=== PATIENT | male | born 1985 | race Caucasian/White ===

== ENCOUNTER 2018-04-02 13:11 | Emergency (ER) | payer OTHER ==
[2018-04-02] MEDS ORDERED: LORazepam 1 MG TAB PO ONE ×2 (14:22→15:51)
--- NOTE | 2018-04-02 15:44 | EDPHY ---
H & P Time Seen by Provider: 04/02/18 13:38 HPI/ROS: CHIEF COMPLAINT: Alcohol withdrawal HISTORY OF PRESENT ILLNESS: 32-year-old male presents emergency department with symptoms of alcohol withdrawal. The patient feels tremulous and feels nauseous. Vomited 1 time. He has abdominal cramping. He states that he is an alcoholic and typically drinks and upwards of 2 bottles of wine per day. Last drink last night. He has never been through treatment in the past. Denies diarrhea. Denies pain in his chest or difficulty breathing. REVIEW OF SYSTEMS: Constitutional: No fever, no chills. Eyes: No double or blurry vision. ENT: No sore throat. Respiratory: No cough, no shortness of breath. Cardiac: No chest pain. Gastrointestinal: Vomiting as above. No abdominal pain or diarrhea. Genitourinary: No dysuria. Musculoskeletal: No neck or back pain. Skin: No rashes. Neurological: No headache. Past Medical/Surgical History: Alcoholism Social History: . Just moved here from [place] 2 weeks ago Smoking Status: Former smoker Physical Exam: General Appearance: Alert, no distress. Mildly tremulous. Anxious. Spouse at bedside. Eyes: Pupils equal and round. Extraocular motions are all intact. ENT: Mouth: Mucous membranes moist. Respiratory: No wheezing, rhonchi, or rales, lungs are clear to auscultation. Cardiovascular: Regular rate and rhythm. Gastrointestinal: Abdomen is soft and nontender, no masses, no rebound or guarding, bowel sounds normal. Neurological: Alert and oriented x 3, cranial nerves II through XII grossly intact Skin: Warm and dry, no rashes. Musculoskeletal: Nontender to palpate along the cervical, thoracic or lumbar spine. Neck is supple. Extremities: Full range of motion and no peripheral edema. Psychiatric: Patient is oriented X 3, there is no agitation. Constitutional: Initial Vital Signs Temperature (C) 36.6 C 04/02/18 13:14 Heart Rate 96 04/02/18 13:14 Respiratory Rate 16 04/02/18 13:14 Blood Pressure 117/83 H 04/02/18 13:14 O2 Sat (%) 99 04/02/18 13:14 O2 Delivery Mode Room Air Allergies/Adverse Reactions: No Known Allergies Allergy (Unverified 04/02/18 13:13) Home Medications: Medication Instructions Recorded NK [No Known Home Meds] 04/02/18 Medical Decision Making ED Course/Re-evaluation: 32-year-old male who feels anxious after withdrawing from alcohol. He was given 0.5 mg of oral Ativan and is feeling much better. The patient is not homicidal or suicidal. His spouse's with him. He feels comfortable going home. He was given resources for alcoholism. He declined full mental health evaluation. Mental Health did bring him some resources. Differential Diagnosis: Including but not limited to alcohol withdrawal, alcohol withdrawal seizure, electrolyte abnormality, substance abuse - Data Points Medications Given: Discontinued Medications Lorazepam (Ativan) 0.5 mg PO EDNOW ONE Stop: 04/02/18 14:23 Last Admin: 04/02/18 14:39 Dose: 0.5 mg Lorazepam (Ativan) 0.5 mg PO EDNOW ONE Stop: 04/02/18 15:52 Last Admin: 04/02/18 15:59 Dose: 0.5 mg Departure - Departure Disposition: Home, Routine, Self-Care Clinical Impression: Alcoholism Alcohol withdrawal Qualifiers: Complication of substance-induced condition: uncomplicated Qualified Code(s): F10.230 - Alcohol dependence with withdrawal, uncomplicated Condition: Good Instructions: Alcohol Withdrawal (ED), Alcohol Dependence (ED) Additional Instructions: Ativan 0.5 mg as needed for symptoms of anxiety and acute withdrawal. You should not drive while taking this medication. Referrals: [facility] [Outside] - As per Instructions
[2018-04-02 16:07] VITALS: BP 126/80
== END 2018-04-02 16:07 | disposition home or self-care (01) ==
DX: F10.230 Alcohol dependence with withdrawal, uncomplicated (principal); Z87.891 Personal history of nicotine dependence

== ENCOUNTER 2018-12-22 11:52 | Emergency (ER) | payer OTHER | END 2018-12-22 14:03 | disposition home or self-care (01) ==